=== PATIENT | male | born 1955 | race Caucasian/White ===

== ENCOUNTER 2017-05-19 09:54 | Inpatient (IN) | payer MEDICARE, OTHER ==
[~2017-05-19] VITALS: Ht 170.2 cm; Wt 64.9 kg
[~2017-05-19 09:54] MED LIST: BENZ2TAB7 PO; MIRT15TA PO; OLAN20TA3 PO; PANT40TA4 PO; PARO10OR3 PO; PARO20TA51 PO; TEMA15CA5 PO
--- NOTE | 2017-05-19 10:04 | NUR ---
PT BIB RA C/O VISUAL HALLUCINATIONS, DELUSIONS, AND "FEEL LIKE I'M IN A DREAM". DENIES SI/HI. DENIES PHYSICAL COMPLAINTS. CALM, COOPERATIVE. A/OX2. AMBULATORY WITH STEADY GAIT. RESP EVEN UNLABORED. IN ER BED 08.
[2017-05-19 10:26] LABS: BASOPHILS # (AUTO) 0.3 /CMM (0.0-0.2); BASOPHILS % (AUTO) 3.9 % (0.0-2.0); EOSINOPHILS % (AUTO) 0.5 % (0.0-6.0); HEMATOCRIT 49 % (39-51); HEMOGLOBIN 16.3 g/dL (13.5-17.5); LYMPHOCYTES % (AUTO) 13.1 % (20.0-44.0); MEAN CORPUSCULAR HEMOGLOBIN 32 PG (26.0-33.0); MEAN CORPUSCULAR HGB CONC 33 g/dl (31.0-36.0); MEAN CORPUSCULAR VOLUME 95 fL (80-96); MONOCYTES # (AUTO) 0.7 /CMM (0.1-1.30); MONOCYTES % (AUTO) 8.7 % (2.0-12.0); NEUTROPHILS # (AUTO) 5.8 /CMM (1.8-8.9); NEUTROPHILS % (AUTO) 73.8 % (43.0-81.0); PLATELET COUNT (AUTO) 110 /CMM (150-450); RDW COEFFICIENT OF VARIATION 13.8 (11.5-15.0); RED BLOOD CELL COUNT(AUTO) 5.14 MIL/uL (4.5-6.0); WHITE BLOOD COUNT (AUTO) 7.8 K/uL (4.3-11.0)
[2017-05-19 10:42] LABS: ALANINE AMINOTRANSFERASE 26 U/L (12-78); ALBUMIN 3.7 g/dL (3.4-5.0); ALCOHOL, BLOOD < 3 mg/dL (0-0); ALKALINE PHOSPHATASE 41 U/L (46-116); ASPARTATE AMINOTRANSFERASE 23 U/L (15-37); BILIRUBIN,DIRECT 0.3 mg/dL (0.0-0.2); BILIRUBIN,TOTAL 0.9 mg/dL (0.2-1.0); CALCIUM, SERUM 9.2 mg/dL (8.5-10.1); CARBON DIOXIDE 29 mmol/L (21-32); CHLORIDE 97 mmol/L (98-107); CREATININE 0.8 mg/dL (0.6-1.3); GLUCOSE 123 mg/dL (74-106); POTASSIUM 4.6 mmol/L (3.5-5.1); SODIUM SERUM 134 mmol/L (136-145); TOTAL PROTEIN, SERUM 7.2 g/dL (6.4-8.2); UREA NITROGEN, BLOOD 23 mg/dL (7-18)
--- NOTE | 2017-05-19 10:56 | NUR ---
Eliseo Fraser LCSW called for eval
--- NOTE | 2017-05-19 10:57 | NUR ---
PROVIDED WITH MEAL TRAY PER REQUEST
--- NOTE | 2017-05-19 14:05 | NUR ---
LILI UNGER NOTED. ALL NEEDS ATTENDED TO.
--- NOTE | 2017-05-19 15:24 | NUR ---
RESTING QUIETLY, NAD NOTED. VSS. AWAITING BED ASSIGNMENT.
--- NOTE | 2017-05-19 15:41 | NUR ---
REPORT GIVEN TO KIRBY CHRISTIANSON FOR GEROPSYCH ADMISSION
--- NOTE | 2017-05-19 15:45 | NUR ---
PT TRANSPORTED TO [facility] IN STABLE CONDITION
[2017-05-19 16:00] VITALS: BP 136/94
--- NOTE | 2017-05-19 16:00 | NUR ---
MOL-UI-[id number]: PT IS 62 YEARS OLD MALE ADMITTED ON 5150 FOR GD. ACCORDING TO THE HOLD, PT CAME FROM [facility]. PT DISAPPEARED FROM SNF. PT IS CONFUSED, DISORGANIZED, DEPRESSED, ANXIOUS. PT UNABLE TO CARE FOR SELF. HX OF SCHIZOPHRENIA, AND MANY PREVIOUS HOSPITALIZATIONS. PT HAS GERD, DEPRESSION, PSYCHOSIS, SCHIZOPHRENIA, HYPOTENSION, COPD, CONSTIPATION, DEMENTIA. PT IS AMBULATORY, SELF-CARE, CONTINENT. MRSA DONE. SKIN ASSESSMENT DONE. BELONGINGS STORED AND DOCUMENTED. GAVE PT'S RIGHT BOOKLET. NOTIFIED DR. NATH AND DR. DR. ELLIS. DISCUSS WITH PT ABOUT MEAL TIMES AND FRESH AIR BREAKS. ALL PAPERWORK AND COMPUTER DOCUMENTATION COMPLETED. WILL ENDORSE TO INCOMING NURSE TO DOUBLE CHECK ALL PAPERWORK AND COMPUTER DOCUMENTATION.
[2017-05-19] MEDS ORDERED: QUET400T PO (16:41)
[2017-05-19] MEDS ORDERED: DIVA500T7 PO (16:41)
[2017-05-19] MEDS ORDERED: ASPI-991 PO (16:41)
[2017-05-19] MEDS ORDERED: PALI6TAB PO (16:41)
[2017-05-19] MEDS ORDERED: LORA1TAB PO (16:41)
[2017-05-19] MEDS ORDERED: DOCU-170 PO (16:41)
[2017-05-19] MEDS ORDERED: DIVA250T6 PO (16:41)
[2017-05-19] MEDS ORDERED: ACETAMINOPHEN 325 MG TABLET PO PRN (17:00)
[2017-05-19] MEDS ORDERED: LORAZEPAM 0.5 MG TABLET PO PRN (17:00)
[2017-05-19] MEDS ORDERED: MAGNESIUM HYDROXIDE 30 ML UDC PO PRN (17:00)
[2017-05-19] MEDS ORDERED: MAG HYDROX/AL HYDROX/SIMETH 30 ML UDC PO PRN (17:00)
[2017-05-19 19:33] VITALS: BP 100/77
[2017-05-20 07:26] LABS: ALBUMIN 3.3 g/dL (3.4-5.0); BILIRUBIN,TOTAL 0.9 mg/dL (0.2-1.0); CALCIUM, SERUM 8.3 mg/dL (8.5-10.1); CREATININE 0.7 mg/dL (0.6-1.3); POTASSIUM 4.2 mmol/L (3.5-5.1); TOTAL PROTEIN, SERUM 6.5 g/dL (6.4-8.2)
[2017-05-20 08:00] VITALS: BP 102/81
[2017-05-20] MEDS ORDERED: PALIPERIDONE 6 MG PO SCH (09:00)
[2017-05-20] MEDS: ASPIRIN EC 81 MG TABLET.DR PO SCH (10:08)
--- NOTE | 2017-05-20 14:13 | NUR ---
Initial Discharge Plan: Patient resides at [facility], [address] [place] [id number], . Patient would like to return upon discharge. ASMITA contacted Teri from [facility], . Teri confirmed that, once stable, patient will be able to return to the facility. ASMITA will help form a safe and proper discharge. ASMITA will provide patient with referrals to a Nicotine Anonymous meeting to address his smoking habits.
[2017-05-20 16:00] VITALS: BP 119/79
[2017-05-20 20:01] VITALS: BP 138/80
[2017-05-20] MEDS: MIRTAZAPINE 15 MG TABLET PO SCH (22:09)
[2017-05-20] MEDS: OLANZAPINE 10 MG TABLET PO SCH (22:11)
[2017-05-21 08:00] VITALS: BP 151/75
[2017-05-21] MEDS: ASPIRIN EC 81 MG TABLET.DR PO SCH (08:29)
[2017-05-21] MEDS: PAROXETINE HCL 20 MG TABLET PO SCH (08:30)
[2017-05-21 16:00] VITALS: BP 100/67
[2017-05-21 20:11] VITALS: BP 98/49
[2017-05-21] MEDS: MIRTAZAPINE 15 MG TABLET PO SCH (21:27)
[2017-05-21] MEDS: OLANZAPINE 10 MG TABLET PO SCH (21:29)
[2017-05-22 08:00] VITALS: BP 94/63
[2017-05-22] MEDS: PAROXETINE HCL 20 MG TABLET PO SCH (08:19)
[2017-05-22] MEDS: ASPIRIN EC 81 MG TABLET.DR PO SCH (08:19)
[2017-05-22 16:17] VITALS: BP 95/60
[2017-05-22 21:30] VITALS: BP 96/69
[2017-05-22] MEDS: TEMAZEPAM 7.5 MG CAPSULE PO PRN (22:07)
[2017-05-22] MEDS: MIRTAZAPINE 15 MG TABLET PO SCH (22:07)
[2017-05-22] MEDS: OLANZAPINE 10 MG TABLET PO SCH (22:07)
[2017-05-23 08:00] VITALS: BP 103/65
[2017-05-23] MEDS: ASPIRIN EC 81 MG TABLET.DR PO SCH (08:41)
[2017-05-23] MEDS: PAROXETINE HCL 20 MG TABLET PO SCH (08:41)
[2017-05-23 16:00] VITALS: BP 108/50
[2017-05-23 20:00] VITALS: BP 105/52
[2017-05-23] MEDS: TEMAZEPAM 7.5 MG CAPSULE PO PRN (21:42)
[2017-05-23] MEDS: MIRTAZAPINE 15 MG TABLET PO SCH (21:42)
[2017-05-23] MEDS: OLANZAPINE 10 MG TABLET PO SCH (21:42)
[2017-05-24 08:00] VITALS: BP 110/62
[2017-05-24] MEDS: PAROXETINE HCL 20 MG TABLET PO SCH (08:25)
[2017-05-24] MEDS: ASPIRIN EC 81 MG TABLET.DR PO SCH (08:25)
[2017-05-24 16:17] VITALS: BP 96/60
[2017-05-24 20:00] VITALS: BP 101/64
[2017-05-24] MEDS: MIRTAZAPINE 15 MG TABLET PO SCH (21:47)
[2017-05-24] MEDS: OLANZAPINE 10 MG TABLET PO SCH (21:47)
[2017-05-25 08:00] VITALS: BP 90/66
[2017-05-25] MEDS: ASPIRIN EC 81 MG TABLET.DR PO SCH (08:55)
[2017-05-25] MEDS: PAROXETINE HCL 20 MG TABLET PO SCH (08:55)
[2017-05-25 16:00] VITALS: BP 97/65
[2017-05-25 19:35] VITALS: BP 90/60
[2017-05-25] MEDS: MIRTAZAPINE 15 MG TABLET PO SCH (21:02)
[2017-05-25] MEDS: OLANZAPINE 10 MG TABLET PO SCH (21:03)
[2017-05-26 08:00] VITALS: BP 92/64
[2017-05-26] MEDS: PAROXETINE HCL 20 MG TABLET PO SCH (08:04)
[2017-05-26] MEDS: ASPIRIN EC 81 MG TABLET.DR PO SCH (08:04)
--- NOTE | 2017-05-26 11:10 | NUR ---
ASMITA spoke with Ron, an information systems administrator at [facility], [address] [place] [address], . Ron stated that, when the patient is getting ready for discharge, they will need to come and assess him. ASMITA contacted Dr. Ibarra and asked if patient can be assessed in the next couple days. ASMITA will wait to hear back from psychiatrist and will follow up with Ron for assessment.
--- NOTE | 2017-05-26 11:21 | NUR ---
ASMITA spoke with Dr. Ibarra who stated that the patient can be evaluated tomorrow. ASMITA called Ron, an victim witness administrator at [facility], [address] [place] [address], . Ron stated that they will try to send someone over tomorrow if possible, but stated that they might not have someone available to assess. Ron stated that on Friday someone will be in to assess for sure if Friday does not doran out. ASIMTA will follow up tomorrow.
[2017-05-26 16:00] VITALS: BP 140/77
[2017-05-26 19:59] VITALS: BP 99/51
[2017-05-26] MEDS: OLANZAPINE 10 MG TABLET PO SCH (22:00)
[2017-05-26] MEDS: MIRTAZAPINE 15 MG TABLET PO SCH (22:00)
--- NOTE | 2017-05-26 23:27 | NUR ---
GPS RN NOTE: ZYPREXA AND REMERON HELD DUE TO LOW RANGE BP = 90/50 HR=61. PATIENT HAS NO SOB, NO ACUTE DISTRESS, BREATHING EVEN AND UNLABORED, DENIES PAIN AND DISCOMFORT, WILL CONTINUE TO MONITOR [id number] FOR SAFETY
[2017-05-27 08:00] VITALS: BP 100/59
[2017-05-27] MEDS: PAROXETINE HCL 20 MG TABLET PO SCH (08:14)
[2017-05-27] MEDS: ASPIRIN EC 81 MG TABLET.DR PO SCH (08:14)
--- NOTE | 2017-05-27 10:10 | NUR ---
ASMITA spoke with Basil from [place] at [facility], [address] [place], [place] [id number], . SW confirmed assessment for patient scheduled for tomorrow, 05/28 at 2pm.
[2017-05-27 15:42] VITALS: BP 96/61
[2017-05-27 19:30] VITALS: BP 96/53
[2017-05-27] MEDS: MIRTAZAPINE 15 MG TABLET PO SCH (22:00)
[2017-05-27] MEDS: OLANZAPINE 10 MG TABLET PO SCH (22:00)
--- NOTE | 2017-05-27 23:00 | NUR ---
GPS RN NOTE: REMERON AND ZYPREXA HELD D/T LOW BP 90/60 HR 71. NO SOB, NO ACUTE DISTRESS, BREATHING EVEN AND UNLABORED, DENIES PAIN AND DISCOMFORT. WILL CONTINUE TO MONITOR [id number] FOR SAFETY Addendum: 05/28/17 at 0008 by OBINNA BURTON II, RN PATIENT ATE SNACKS, DRANK WATER AND PLACED IN TRENDELENBURG POSITION FOR 15 MINUTES BUT BLOOD PRESSURE STILL RANGES BELOW 100/60. PATIENT DENIES C/O OF ANY DISCOMFORT AND DISTRESS. CN AWARE. WILL CONTINUE TO MONITOR [id number] FOR SAFETY
--- NOTE | 2017-05-28 06:43 | NUR ---
GPS RN NOTE: NOTIFIED DR. ELLIS REGARDING THAT THE ZYPREXA AND RISPERIDONE WAS BEING HELD D/T BLOOD PRESSURE OF THE PATIENT. DR. ELLIS ORDERED TO HOLD ZYPREXA WHEN THE BP IS LESS THAN 90/60 NOTED AND CARRIED OUT. WILL CONTINUE TO MONITOR [id number] FOR SAFETY
[2017-05-28 06:51] LABS: CHOLESTEROL 141 mg/dL (<200); HDL CHOLESTEROL 51 mg/dL (40-60); LDL 88 mg/dL (0-99); TRIGLYCERIDES 32 mg/dL (30-150)
[2017-05-28 08:00] VITALS: BP 94/55
[2017-05-28] MEDS: ASPIRIN EC 81 MG TABLET.DR PO SCH (09:23)
[2017-05-28] MEDS: PAROXETINE HCL 20 MG TABLET PO SCH (09:24)
--- NOTE | 2017-05-28 15:02 | NUR ---
ASMITA followed up with Basil from [place] at [facility], [address] [place] [id number], . ASMITA stated that the assessment was scheduled at 2pm and that no one had come by. Basil informed social welfare administrator that Ron, the person what was to assess patient, was detained in [place]. Basil asked social welfare administrator if assessment can be rescheduled for tomorrow at 11am. Basil stated that he will be the one to conduct the assessment. utilities ground worker agreed. ASMITA will follow up.
[2017-05-28 19:32] VITALS: BP 82/50
[2017-05-28] MEDS: MIRTAZAPINE 15 MG TABLET PO SCH (20:44)
[2017-05-28] MEDS: OLANZAPINE 10 MG TABLET PO SCH (20:44)
[2017-05-29 08:00] VITALS: BP 92/58
[2017-05-29] MEDS: ASPIRIN EC 81 MG TABLET.DR PO SCH (08:24)
[2017-05-29] MEDS: PAROXETINE HCL 20 MG TABLET PO SCH (08:24)
--- NOTE | 2017-05-29 10:27 | NUR ---
Basil from [place] at [facility], [address] [place] [address], came to assess patient. Basil stated that it seems that patient is "back to his normal self" and that the facility would welcome him back. Baisl stated that [place] will arrange transportation for patient once he is discharged [Friday or Friday]
[2017-05-29 16:05] VITALS: BP 90/62
[2017-05-29 19:52] VITALS: BP 86/56
[2017-05-29 20:15] VITALS: BP 86/50
[2017-05-29] MEDS: OLANZAPINE 10 MG TABLET PO SCH (20:47)
[2017-05-29] MEDS: MIRTAZAPINE 15 MG TABLET PO SCH (21:11)
[2017-05-30 08:01] VITALS: BP 99/61
[2017-05-30] MEDS: DOCUSATE SODIUM 100 MG CAPSULE PO PRN (09:03)
[2017-05-30] MEDS: PAROXETINE HCL 20 MG TABLET PO SCH (09:03)
[2017-05-30] MEDS: ASPIRIN EC 81 MG TABLET.DR PO SCH (09:03)
--- NOTE | 2017-05-30 09:26 | NUR ---
ASMITA called [facility] at [facility], [address] [place] [address], and spoke with Sadie to arrange transportation for patient on Friday. Sadie scheduled pickle pumper at 1pm on Friday06/02/17 with [phone]
[2017-05-30 16:00] VITALS: BP 151/70
[2017-05-30 20:00] VITALS: BP_SYST 121; BP_SYST 97; BP_DIAS 51; BP_DIAS 73
[2017-05-30] MEDS: MIRTAZAPINE 15 MG TABLET PO SCH (22:06)
[2017-05-30] MEDS: OLANZAPINE 10 MG TABLET PO SCH (22:06)
--- NOTE | 2017-05-31 07:19 | NUR ---
got up several times to void,no c/o
[2017-05-31 08:00] VITALS: BP 95/58
[2017-05-31] MEDS: ASPIRIN EC 81 MG TABLET.DR PO SCH (08:32)
[2017-05-31] MEDS: PAROXETINE HCL 20 MG TABLET PO SCH (08:32)
[2017-05-31 16:00] VITALS: BP 89/58
[2017-05-31 20:00] VITALS: BP 101/62
[2017-05-31] MEDS: MIRTAZAPINE 15 MG TABLET PO SCH (21:45)
[2017-05-31] MEDS: OLANZAPINE 10 MG TABLET PO SCH (21:45)
--- NOTE | 2017-05-31 21:45 | NUR ---
GPS-RN ZYPREXA 20MG NOT GIVEN BECAUSE OF DECREASE BLOOD PRESSURE 82/54MMHG. OFFER FLUIDS TOLERATED. WILL CONTINUE TO MONITOR FOR SAFETY.
[2017-06-01 07:57] VITALS: BP 104/70
[2017-06-01] MEDS: PAROXETINE HCL 20 MG TABLET PO SCH (08:04)
[2017-06-01] MEDS: ASPIRIN EC 81 MG TABLET.DR PO SCH (08:04)
[2017-06-01 16:00] VITALS: BP 99/53
[2017-06-01 19:49] VITALS: BP 100/63
[2017-06-01] MEDS: OLANZAPINE 10 MG TABLET PO SCH (21:30)
[2017-06-01] MEDS: MIRTAZAPINE 15 MG TABLET PO SCH (21:30)
[2017-06-02 08:00] VITALS: BP 100/58
[2017-06-02] MEDS: ASPIRIN EC 81 MG TABLET.DR PO SCH (08:02)
[2017-06-02] MEDS: PAROXETINE HCL 20 MG TABLET PO SCH (08:03)
[2017-06-02] MEDS: DOCUSATE SODIUM 100 MG CAPSULE PO PRN (08:03)
[2017-06-02 16:08] VITALS: BP 80/60
--- NOTE | 2017-06-02 16:42 | NUR ---
GPS RN NOTE: PATIENT DISCHARGE TO [facility] [address] [place], [place] [address] [address] VIA TRANSPORTATION [facility] .PERCY KITCHEN MECHANIC PICKED UP PT IN STABLE CONDITION NO S/S DISTRESS NOTED PATIENT DENIES SI/HI NO AGITATION ,EXIT CARE DONE ,PRINTED , SIGN AND GIVEN TO PATIENT ALL BELONGINGS RETURNED TO PT. PT SKIN CHECKED SKIN INTACT PATIENT SIGN DISCHARGE PAPERS MEDICATIONS EXPLAIN TO PATIENT AND RX FAX TO [facility] [phone].
--- NOTE | 2017-06-02 16:45 | NUR ---
Patient was discharged to [place] at [address] [place] [address], on this date.
== END 2017-06-02 16:40 | DRG 885 ==
LOC: ER 09:56 → GPS 15:42
PROVIDERS: ADMIT Psychiatry & Neurology Psychiatry; ATTEND Internal Medicine
DX: F20.9 Schizophrenia, unspecified (principal); D69.6 Thrombocytopenia, unspecified; E87.1 Hypo-osmolality and hyponatremia; F29 Unspecified psychosis not due to a substance or known physiological condition; E78.5 Hyperlipidemia, unspecified; F32.9 Major depressive disorder, single episode, unspecified; K21.9 Gastro-esophageal reflux disease without esophagitis; Z87.11 Personal history of peptic ulcer disease; K29.70 Gastritis, unspecified, without bleeding
CPT/HCPCS: 36415; 80048-TC; 80053-TC; 80061-TC; 80076-TC; 85025-TC; 87081-TC; A4606; G0480; Z7610

== ENCOUNTER 2019-04-27 23:04 | Inpatient (IN) | payer MEDICARE ==
[~2019-04-27] VITALS: Ht 172.7 cm; Wt 59.9 kg
[~2019-04-27 23:04] MED LIST changes: +ASPI-1152 PO; -BENZ2TAB7 PO; +DOCU100C36 PO; -MIRT15TA PO; -OLAN20TA3 PO; +PALI6TAB PO; -PANT40TA4 PO; -PARO10OR3 PO; -PARO20TA51 PO; -TEMA15CA5 PO
[2019-04-27 23:23] LABS: APPEARANCE,URINE Clear (CLEAR); BILIRUBIN,URINE Negative (NEGATIVE); BLOOD, URINE Negative Ery/uL (NEGATIVE); COLOR,URINE Yellow (YELLOW); KETONES,URINE Negative (NEGATIVE); LEUKOCYTE ESTERASE ,URINE Negative (NEGATIVE); NITRITE, URINE Negative (NEGATIVE); PROTEIN,URINE Negative (NEGATIVE); UGLUCOSE Negative (NEGATIVE); UROBILINOGEN,URINE 0.2 EU/dL (0.2)
[2019-04-27 23:25] LABS: BASOPHILS % (AUTO) 0.6 % (0.0-2.0); EOSINOPHILS % (AUTO) 2.5 % (0.0-6.0); HEMATOCRIT 42 % (39-51); HEMOGLOBIN 14.4 g/dL (13.5-17.5); LYMPHOCYTES # (AUTO) 1.5 /CMM (0.8-4.8); LYMPHOCYTES % (AUTO) 32.7 % (20.0-44.0); MEAN CORPUSCULAR HGB CONC 35 g/dl (31.0-36.0); MEAN CORPUSCULAR VOLUME 98 fL (80-96); MONOCYTES # (AUTO) 0.6 /CMM (0.1-1.30); NEUTROPHILS # (AUTO) 2.5 /CMM (1.8-8.9); NEUTROPHILS % (AUTO) 52.2 % (43.0-81.0); PLATELET COUNT (AUTO) 128 /CMM (150-450); RED BLOOD CELL COUNT(AUTO) 4.25 MIL/uL (4.5-6.0); WHITE BLOOD COUNT (AUTO) 4.7 K/uL (4.3-11.0)
[2019-04-27 23:34] LABS: CARBON DIOXIDE 29 mmol/L (21-32); CHLORIDE 96 mmol/L (98-107); CREATININE 0.9 mg/dL (0.6-1.3); GLUCOSE 94 mg/dL (74-106); POTASSIUM 4.5 mmol/L (3.5-5.1); SODIUM SERUM 132 mmol/L (136-145); UREA NITROGEN, BLOOD 10 mg/dL (7-18)
[2019-04-27 23:43] LABS: ALANINE AMINOTRANSFERASE 20 U/L (12-78); ALBUMIN 3.6 g/dL (3.4-5.0); ALCOHOL, BLOOD < 3 mg/dL (0-0); ALKALINE PHOSPHATASE 65 U/L (46-116); ASPARTATE AMINOTRANSFERASE 19 U/L (15-37); BILIRUBIN,DIRECT 0.1 mg/dL (0.0-0.2); BILIRUBIN,TOTAL 0.3 mg/dL (0.2-1.0); SALICYLATE 5.1 mg/dL (2.8-20.0); TOTAL PROTEIN, SERUM 6.4 g/dL (6.4-8.2)
[2019-04-27 23:46] LABS: ACETAMINOPHEN 0 ug/ml (10-30)
--- NOTE | 2019-04-28 | NUR ---
BIBA. C/O "MENTAL BREAKDOWN TODAY AT [facility]. SMEARING FECES ON KUMAR -HI -SI. AOX4. AMBULATORY. VSS. FOLLOWS VERBAL COMMANDS
--- NOTE | 2019-04-28 00:13 | NUR ---
Patient is resting comfortably in bed with eyes closed. Easily aroused. VSS
--- NOTE | 2019-04-28 01:05 | NUR ---
ART PROGRAM DIRECTOR/MORNING SHOW HOST at the bed side
[2019-04-28] MEDS ORDERED: ACET-868 PO (02:07)
[2019-04-28] MEDS ORDERED: PARO30TA74 PO (02:07)
[2019-04-28] MEDS ORDERED: QUET400T PO (02:07)
[2019-04-28] MEDS ORDERED: PARO20TA7 PO (02:07)
[2019-04-28] MEDS ORDERED: BENZ2TAB7 PO (02:07)
[2019-04-28] MEDS ORDERED: OLAN20TA3 PO (02:07)
[2019-04-28] MEDS ORDERED: DIVA-76 PO (02:07)
[2019-04-28] MEDS ORDERED: DIVA-78 PO (02:07)
[2019-04-28] MEDS ORDERED: MIRT15TA PO (02:07)
[2019-04-28] MEDS ORDERED: HYDR-4384 PO (02:07)
--- NOTE | 2019-04-28 02:15 | NUR ---
Report given to Yosef CHRISTIANSON for continuation of care.
[2019-04-28] MEDS ORDERED: ACETAMINOPHEN 325 MG TABLET PO PRN ×2 (02:30→03:30)
[2019-04-28] MEDS ORDERED: DOCUSATE SODIUM 100 MG CAPSULE PO PRN (02:30)
--- NOTE | 2019-04-28 02:49 | NUR ---
pt to jodi via wheelchair.
--- NOTE | 2019-04-28 03:00 | NUR ---
Admitted a 64 y/o male from [facility] and evaluated at [facility] On 515 hold as GD. Patient admitting Dx. Psychosis. Medical Dx. GERD. Upon face to face evaluation, patient appeared alert and oriented x 1-2, calm, cooperative, verbalized depression, denies si/hi/ah/vh, Explained the paper works and patient sign the consents. Informed of visiting hours and unit policies. Belongings and contraband checked. Q15 min checks initiated. Care plan started. Vital signs checked and recorded. Patient's rights discussed, guide to prescription meds handbook provided. Patient advised of the hold. Notified Dr. Perla of the admission. Will monitor patient for mood, safety and behavior. Will endorse to the day shift. Addendum: 04/28/19 at 0414 by OBINNA BURTON II, RN notified [employer] Developer Margot Romero to reconcile medication
[2019-04-28] MEDS ORDERED: BLOOD SUGAR DIAGNOSTIC 1 EACH STRIP IN ONE (03:30)
[2019-04-28] MEDS ORDERED: LORAZEPAM 0.5 MG TABLET PO PRN (03:30)
[2019-04-28] MEDS ORDERED: MAG HYDROX/AL HYDROX/SIMETH 30 ML UDC PO PRN (03:30)
[2019-04-28] MEDS ORDERED: MAGNESIUM HYDROXIDE 30 ML UDC PO PRN (03:30)
[2019-04-28] MEDS ORDERED: ZOLPIDEM TARTRATE 5 MG TABLET PO PRN (03:30)
[2019-04-28 04:39] VITALS: BP 104/68
[2019-04-28 07:35] LABS: CREATININE 0.8 mg/dL (0.6-1.3)
[2019-04-28 08:00] VITALS: BP 100/69
[2019-04-28] MEDS ORDERED: DIVALPROEX SODIUM 250 MG TABLET.DR PO SCH (09:00)
[2019-04-28] MEDS ORDERED: BENZTROPINE MESYLATE (1 MG) 1 MG TABLET PO SCH (09:00)
[2019-04-28] MEDS: ASPIRIN EC 81 MG TABLET.DR PO SCH (09:33)
[2019-04-28] MEDS: NICOTINE PATCH (21MG) 21 MG PATCH.TD24 TD SCH (09:33)
--- NOTE | 2019-04-28 11:48 | NUR ---
SW attempted to contact pts mother Susana [phone] and left a voicemail for callback.
--- NOTE | 2019-04-28 11:50 | NUR ---
SW contacted [facility] Address: [address] [place] [address] Larson and honey Abdi who provided SW with collateral information. Per Dr. Larson she needs to evaluate pt before he is discharged and she also mentioned that pts psychotic symptoms and bizarre behavior began soon after pt received Invega Sustena 234 mg on 04/14/19. Per Jin, he stated that pts mother Susana is not involved with pts care and that pt has been living at the facility for 10 years. Per Jin, pt has not been visited by any family members or his mother in the entire time he's been living there. Per Jin, pt has been psychiatrically hospitalized 12/13 times in the past 10 years.
--- NOTE | 2019-04-28 12:53 | NUR ---
INITIAL DISCHARGE NOTE: Patient will return to [facility] Address: [address] [place] [address] Larson she needs to evaluate pt before he is discharged. SW will help form a safe and proper discharge in collaboration with .
[2019-04-28] MEDS: DIVALPROEX SODIUM 250 MG TABLET.DR PO SCH ×2 (13:30→17:29)
--- NOTE | 2019-04-28 14:00 | NUR ---
GROUP NOTE: SW encouraged pt to participate in group therapy on this present day to discuss "positive coping skills." Pt was asleep and not easily aroused.
[2019-04-28 16:00] VITALS: BP 117/83
--- NOTE | 2019-04-28 18:51 | NUR ---
COOPERATIVE AND PLEASANT,STARTED ON DEPAKOTE.
[2019-04-28 20:05] VITALS: BP 119/75
[2019-04-28] MEDS: LORAZEPAM 0.5 MG TABLET PO PRN (21:03)
[2019-04-28] MEDS: QUETIAPINE FUMARATE 100 MG TABLET PO SCH (21:24)
[2019-04-28] MEDS ORDERED: DIVALPROEX SODIUM 500 MG TABLET.DR PO SCH (22:00)
--- NOTE | 2019-04-29 04:07 | NUR ---
FOUND PATIENT ON THE FLOOR ASK THE PATIENT WHAT HAPPEN PATIENT STATED SHE WAKE UP SO FAST TO GO TO THE BATHROOM, AND LOST HER BALANCE PATIENT IS ALERT, ORIENTED X 4 AMBULATORY DENIES ANY PAIN OR DISCOMFORT AT THIS TIME, VITAL SIGN CHECK IS STABLE B.P IS 111/63 HEART RATE IS 78 O2 IS 99 IN ROOM AIR NO BRUISES NOTED OR REDNESS NOTED AT THIS TIME. NO SWELLING NOTED PAGED THE AND RECEIVED THE ORDERED FOR STAT CT- SCAN, AND TOOK THE PATIENT RADIOLOGY FOR CT ACAN WILL INFORM THE FAMILY IN AT 6 AM Addendum: 04/29/19 at 0533 by SANJANA WESTBROOK RN WRONG PATIENT CHARTING WRONG PATIENT Addendum: 04/29/19 at 0536 by SANJANA WESTBROOK RN WRONG CHARTING ON WRONG PATIENT.
[2019-04-29 07:38] LABS: CHOLESTEROL 113 mg/dL (<200); HDL CHOLESTEROL 52 mg/dL (40-60); LDL 56 mg/dL (0-99); TRIGLYCERIDES 31 mg/dL (30-150)
[2019-04-29 08:00] VITALS: BP 106/73
[2019-04-29] MEDS: ASPIRIN EC 81 MG TABLET.DR PO SCH (08:49)
[2019-04-29] MEDS: DIVALPROEX SODIUM 250 MG TABLET.DR PO SCH ×3 (08:50→17:22)
[2019-04-29] MEDS: NICOTINE PATCH (21MG) 21 MG PATCH.TD24 TD SCH (08:50)
[2019-04-29 16:00] VITALS: BP 115/77
[2019-04-29 20:00] VITALS: BP 102/64
[2019-04-29 20:23] VITALS: BP 102/64
[2019-04-29] MEDS: QUETIAPINE FUMARATE 100 MG TABLET PO SCH (21:17)
[2019-04-29] MEDS: LORAZEPAM 0.5 MG TABLET PO PRN (21:48)
--- NOTE | 2019-04-30 07:17 | NUR ---
GPS RN NOTE PATIENT TOLERATED THE NIGHT WELL NO S/S OF ACUTE DISTRESS. PATIENT SLEPT THROUGHOUT THE WHOLE NIGHT. PATIENT DENIES SI/HI. SAFETY PRECAUTIONS IN PLACE. CARE GIVEN ORDERED SAFETY CHECKS Q 15 DONE. NO INJURIES SUSTAINED DURING SHIFT. ENDORSED POC TO AM FOR SHAWN.
[2019-04-30 08:00] VITALS: BP 90/62
[2019-04-30] MEDS: NICOTINE PATCH (21MG) 21 MG PATCH.TD24 TD SCH (08:13)
[2019-04-30] MEDS: DIVALPROEX SODIUM 250 MG TABLET.DR PO SCH ×3 (08:13→17:02)
[2019-04-30] MEDS: ASPIRIN EC 81 MG TABLET.DR PO SCH (08:13)
--- NOTE | 2019-04-30 15:16 | NUR ---
GROUP NOTE: SW encouraged pt to participate in group therapy on this present day to discuss "discharge planning." Pt was in the shower.
[2019-04-30 16:00] VITALS: BP 103/62
--- NOTE | 2019-04-30 18:32 | NUR ---
RN NOTES: PATIENT REMAINS ALERT AWAKE ORIENTED X 2. CALM, COOPERATIVE. ON ROOM AIR, NO BREATHING DISTRESS NOTED. DENIES CHEST PAIN & DISCOMFORT. AMBULATORY, STEADY GAIT. NO FALL/INJURY NOTED. DENIES SI/HI/AVH AT THIS TIME. SAFETY MEASURES OBSERVED. CONTINUE TO MONITOR. REMAINS MED COMPLIANT.
[2019-04-30 20:00] VITALS: BP 102/69
[2019-04-30] MEDS: QUETIAPINE FUMARATE 100 MG TABLET PO SCH (21:09)
[2019-05-01 08:00] VITALS: BP 103/69
[2019-05-01] MEDS: NICOTINE PATCH (21MG) 21 MG PATCH.TD24 TD SCH (08:22)
[2019-05-01] MEDS: DIVALPROEX SODIUM 250 MG TABLET.DR PO SCH ×3 (08:23→16:21)
[2019-05-01] MEDS: ASPIRIN EC 81 MG TABLET.DR PO SCH (08:24)
[2019-05-01 16:00] VITALS: BP 104/63
[2019-05-01 20:00] VITALS: BP 99/59
[2019-05-01] MEDS: QUETIAPINE FUMARATE 100 MG TABLET PO SCH (21:01)
[2019-05-02 08:00] VITALS: BP 100/70
[2019-05-02] MEDS: ASPIRIN EC 81 MG TABLET.DR PO SCH (10:25)
[2019-05-02] MEDS: NICOTINE PATCH (21MG) 21 MG PATCH.TD24 TD SCH (10:25)
[2019-05-02] MEDS: DIVALPROEX SODIUM 250 MG TABLET.DR PO SCH ×3 (10:25→16:38)
[2019-05-02 15:58] VITALS: BP 100/64
--- NOTE | 2019-05-02 19:27 | NUR ---
Handoff endorsement with night RN. Remy Lane RN
[2019-05-02 20:45] VITALS: BP 99/64
[2019-05-02] MEDS: QUETIAPINE FUMARATE 100 MG TABLET PO SCH (21:23)
[2019-05-03 08:00] VITALS: BP 113/83
[2019-05-03] MEDS: NICOTINE PATCH (21MG) 21 MG PATCH.TD24 TD SCH (08:09)
[2019-05-03] MEDS: ASPIRIN EC 81 MG TABLET.DR PO SCH (08:09)
[2019-05-03] MEDS: DIVALPROEX SODIUM 250 MG TABLET.DR PO SCH ×3 (08:09→16:05)
--- NOTE | 2019-05-03 15:44 | NUR ---
Group Note: SW encouraged pt to participate in group therapy on 05/03/19 at 2pm to discuss discharge planning. Pt was asleep and not easily aroused. SW informed him that he can join the group when he is ready.
[2019-05-03 16:00] VITALS: BP 111/74
--- NOTE | 2019-05-03 19:35 | NUR ---
RN NOTES: PT REMAINS IN BED AT THIS TIME. NO SOB NOTED. NO S/S OF DISTRESS. PT APPEARS TO BE CALM AT THIS TIME. PT ALSO APPEARS TO BE A/OX1-2. NO IV NOTED. BED KEPT IN LOW, LOCKED POSITION, AND SIDE RAILS X 2UP. WILL CONTINUE TO MONITOR PT.
[2019-05-03 20:07] VITALS: BP 106/70
[2019-05-03 20:10] VITALS: BP 106/70
[2019-05-03] MEDS: QUETIAPINE FUMARATE 100 MG TABLET PO SCH (21:15)
--- NOTE | 2019-05-04 06:23 | NUR ---
RN CLOSING NOTES: ALL NEEDS WERE ATTENDED AND ANTICIPATED FOR. PT ASLEEP AT THIS TIME AND RESTING COMFORTABLY. NO SOB NOTED. NO S/S OF DISTRESS. NO IV NOTED. BED KEPT IN LOW, LOCKED POSITION, AND SIDE RAILS X 2UP. WILL ENDORSE TO AM NURSE FOR SHAWN.
[2019-05-04 06:46] LABS: BASOPHILS % (AUTO) 0.6 % (0.0-2.0); EOSINOPHILS % (AUTO) 3.3 % (0.0-6.0); HEMATOCRIT 43 % (39-51); HEMOGLOBIN 14.9 g/dL (13.5-17.5); LYMPHOCYTES # (AUTO) 1.7 /CMM (0.8-4.8); LYMPHOCYTES % (AUTO) 33.9 % (20.0-44.0); MEAN CORPUSCULAR HGB CONC 34 g/dl (31.0-36.0); MEAN CORPUSCULAR VOLUME 97 fL (80-96); MONOCYTES # (AUTO) 0.7 /CMM (0.1-1.30); MONOCYTES % (AUTO) 13.4 % (2.0-12.0); NEUTROPHILS # (AUTO) 2.5 /CMM (1.8-8.9); NEUTROPHILS % (AUTO) 48.8 % (43.0-81.0); PLATELET COUNT (AUTO) 127 /CMM (150-450); RED BLOOD CELL COUNT(AUTO) 4.47 MIL/uL (4.5-6.0); WHITE BLOOD COUNT (AUTO) 5.1 K/uL (4.3-11.0)
[2019-05-04 07:07] LABS: CALCIUM, SERUM 8.8 mg/dL (8.5-10.1); CREATININE 0.7 mg/dL (0.6-1.3); PHOSPHORUS 3.4 mg/dL (2.5-4.9); POTASSIUM 4.8 mmol/L (3.5-5.1)
[2019-05-04 08:00] VITALS: BP 117/81
[2019-05-04] MEDS: ASPIRIN EC 81 MG TABLET.DR PO SCH (08:42)
[2019-05-04] MEDS: DIVALPROEX SODIUM 250 MG TABLET.DR PO SCH ×3 (08:42→16:15)
[2019-05-04] MEDS: NICOTINE PATCH (21MG) 21 MG PATCH.TD24 TD SCH (08:45)
[2019-05-04 16:13] VITALS: BP 93/71
[2019-05-04 21:15] VITALS: BP_SYST 91; BP_DIAS 51; BP_DIAS 64
[2019-05-04] MEDS: QUETIAPINE FUMARATE 100 MG TABLET PO SCH (21:20)
[2019-05-05 07:35] LABS: CALCIUM, SERUM 8.5 mg/dL (8.5-10.1); CREATININE 0.8 mg/dL (0.6-1.3); POTASSIUM 4.8 mmol/L (3.5-5.1)
[2019-05-05 08:00] VITALS: BP 100/67
[2019-05-05] MEDS: ASPIRIN EC 81 MG TABLET.DR PO SCH (08:09)
[2019-05-05] MEDS: DIVALPROEX SODIUM 250 MG TABLET.DR PO SCH ×3 (08:09→16:23)
[2019-05-05] MEDS: NICOTINE PATCH (21MG) 21 MG PATCH.TD24 TD SCH (08:09)
--- NOTE | 2019-05-05 10:36 | NUR ---
ASMITA contacted [facility] Address: [address] [place] [address] Lester to inform her pt was discharging tomorrow 05/06/19. Dr Lester agreed with discharge and requested clinicals be faxed to [phone].
--- NOTE | 2019-05-05 12:45 | NUR ---
Group Note: SW encouraged pt to participate in group therapy on 05/04/19 to discuss support systems and their impact. Pt stated that he did not want to participate because he did not like the topic.
--- NOTE | 2019-05-05 15:53 | NUR ---
Group Note: SW went to patient's room to invite patient to attend today's support group at 2:45pm in the activities room, regarding positive coping mechanisms. Patient presented laying on his bed sleeping. SW attempted to wake patient but they remained sleeping.
[2019-05-05 16:00] VITALS: BP 103/72
[2019-05-05 20:20] VITALS: BP 99/62
[2019-05-05] MEDS: QUETIAPINE FUMARATE 100 MG TABLET PO SCH (21:10)
[2019-05-06 08:00] VITALS: BP 100/62
--- NOTE | 2019-05-06 09:00 | NUR ---
DR. MCCABE GAVE AN ORDER TO D/C HOLD AND D/C TO [facility] AND TO FOLLOW UP WITH PSYCH AND MEDICAL DOCTORS.
[2019-05-06] MEDS: DIVALPROEX SODIUM 250 MG TABLET.DR PO SCH ×2 (09:50→12:34)
[2019-05-06] MEDS: ASPIRIN EC 81 MG TABLET.DR PO SCH (09:50)
[2019-05-06] MEDS: NICOTINE PATCH (21MG) 21 MG PATCH.TD24 TD SCH (09:51)
--- NOTE | 2019-05-06 10:47 | NUR ---
ASMITA faxed clinicals to Dr. Lester at [facility] Address: [address] [place] [phone] .
--- NOTE | 2019-05-06 12:42 | NUR ---
DISCHARGE NOTE: Pt will be discharged at 1:00pm via [facility] Voucher to [facility] [address] [phone] clinical information has been faxed to Dr. Lester at . Pts mood is euthymic with congruent affect. Pt denied suicidal/homicidal ideation and denied visual/auditory hallucinations. Pt will be under the care of Psychiatrist: Dr. Carlos Gomez [phone] and Real Estate Closing Coordinator: Dr. Larson [phone] . The multidisciplinary exit care form was done, printed, signed, and given to the patient.
--- NOTE | 2019-05-06 13:55 | NUR ---
ADVANCED PRACTICE NURSE NOTE: PATIENT IS A 64 YEAR OLD MALE DISCHARGED TO [facility] [address] [facility] [id number] . PATIENT IS IN STABLE CONDITION. VSS. NO ACUTE DISTRESS NOTED. NO COMPLAINTS. COMPLIANT WITH MEDICATION MANAGEMENT. COOPERATIVE WITH PLAN OF CARE. PSYCHIATRIC TREATMENT PLANS MET. MEDICAL TREATMENT PLANS DEFERRED FOR CONTINUAL MONITORING. DENIES SI/HI VAH AT THE TIME OF DISCHARGE. WOUND PICTURES TAKEN AND DOCUMENTED IN CHART. EDUCATED PATIENT ABOUT AFTERCARE WITH COPY PROVIDED. RETURNED PERSONAL BELONGINGS TO PATIENT. MEDICATIONS RECONCILED WITH DR MCCABE AND DOMINIQUE WAIST PLEATER ALONG WITH PSYCHIATRIC DISCHARGE ORDERS. DISCHARGE PAPERWORK SIGNED. FOR FOLLOW UP WITH PSYCHIATRIST DR BISHNU ARMSTRONG [address] [facility] [phone] AND TRANSVERSE ABDOMINAL MUSCLE NURSE DR GUTIERREZ WITHIN 1 WEEK. FAX SENT PRESCRIPTIONS TO DR GUTIERREZ. PATIENT LEFT THE [facility] AT 1355 VIA TAXI.
--- NOTE | 2019-05-06 14:21 | NUR ---
CALLED DR. GUTIERREZ AT [phone] AND CONFIRMED THAT SHE RECEIVED THE PRESCRIPTIONS FOR THE PT.
== END 2019-05-06 13:55 | DRG 885 ==
LOC: ER 23:06 → GPS 04-28 01:59
PROVIDERS: ADMIT Psychiatry & Neurology Psychiatry; ATTEND Nurse Practitioner Acute Care
DX: F25.0 Schizoaffective disorder, bipolar type (principal); E87.1 Hypo-osmolality and hyponatremia; F23 Brief psychotic disorder; K21.9 Gastro-esophageal reflux disease without esophagitis; D69.6 Thrombocytopenia, unspecified; G20 Parkinson's disease; K29.70 Gastritis, unspecified, without bleeding; E78.5 Hyperlipidemia, unspecified
CPT/HCPCS: 36415; 80048-TC; 80061-TC; 80076-TC; 80164-TC; 80305; 81000-TC; 82565-TC; 83735-TC; 84100-TC; 85025-TC; 87081-TC; G0480